=== PATIENT | male | born 1990 | race Caucasian/White ===

== ENCOUNTER 2017-10-18 17:07 | Emergency (ER) | payer SELFPAY ==
[2017-10-18 17:17] VITALS: BP 119/85
[2017-10-18] MEDS ORDERED: HYDROcod/ACET 5/325 Prepack 6 PO STA (17:33)
--- NOTE | 2017-10-18 17:36 | ED Physician Documentation ---
PD HPI HEENT - Stated complaint Stated Complaint: FACIAL/MOUTH PX - Chief complaint Chief Complaint: Heent - History obtained from History obtained from: Patient, Family - History of Present Illness Timing - onset: How many days ago (3) Timing - duration: Days (3) Timing - details: Gradual onset, Still present Location: Tooth Improves: Nothing Worsens: Everything Associated symptoms: Congestion, Other (facial pain and nasal pain) Similar symptoms before: Has not had sx before Recently seen: Not recently seen - Additional information Additional information: 27-year-old male recently moved to the area has developed acute pain in his face there are 2 teeth that are bothering him significantly and pain is radiating up into his nose and in the roof of his mouth. He did have a sore in his nose which seems to have started all this. Review of Systems Constitutional: reports: Fatigue. denies: Fever Eyes: denies: Decreased vision Ears: denies: Ear pain Nose: reports: Congestion Throat: reports: Dental pain / toothache Respiratory: denies: Cough GI: denies: Vomiting PD PAST MEDICAL HISTORY - Present Medications Home Medications: Ambulatory Orders Medication Instructions Recorded Confirmed Clindamycin HCl [Clindamycin 300MG 300 mg PO QID #28 capsule 10/18/17 CAP] HYDROcod/ACETAM 5/325 [[place] 5/325] 1 - 2 ea PO Q6H PRN #15 tablet 10/18/17 - Allergies Allergies/Adverse Reactions: Allergies Allergy/AdvReac Type Severity Reaction Status Date / Time amoxicillin Allergy Anaphylaxis Verified 10/18/17 17:17 Penicillins Allergy Anaphylaxis Verified 10/18/17 17:17 PD ED PE NORMAL - Vitals Vital signs reviewed: Yes (Hypertensive mild) - General General: Alert and oriented X 3, Well developed/nourished - HEENT HEENT: Atraumatic, PERRL, EOMI, Ears normal, Moist mucous membranes, Pharynx benign, Other (There are 3 teeth that are sensitive to touch. 6. 7 and 8 are all tender with 7 being the most tender. There are no areas of fluctuance or swelling in the gingiva or buccal mucosa.) - Neck Neck: Supple, no meningeal sign, No bony TTP - Cardiac Cardiac: RRR - Respiratory Respiratory: No respiratory distress, Clear bilaterally - Back Back: No CVA TTP, No spinal TTP - Derm Derm: Normal color, No rash - Extremities Extremities: No deformity, No edema - Neuro Neuro: Alert and oriented X 3, No motor deficit, No sensory deficit, Normal speech Eye Opening: Spontaneous Motor: Obeys Commands Verbal: Oriented GCS Score: 15 - Psych Psych: Normal mood, Normal affect PD ED PE EXPANDED - HEENT HEENT Visual: 1 - tenderness Results - Vitals Vitals: Vital Signs - 24 hr 10/18/17 17:15 Temperature 36.1 C L Heart Rate 64 Respiratory 20 Rate Blood Pressure 119/85 H O2 Saturation 99 Oxygen O2 Source Room air PD MEDICAL DECISION MAKING - ED course Complexity details: considered differential, d/w patient, d/w family ED course: 27 y/o male with acute pain in the face and under the nose has 3 teeth that are sensitive and his nose has only mild inflammation. He is given a script for bactroban and we will start him on some clindamycin now. Departure - Departure Disposition: Home, Self Care Clinical Impression: Dental abscess Condition: Stable Instructions: ED Abscess Dental Follow-Up: [facility] [Provider Group] Prescriptions: Clindamycin HCl [Clindamycin 300MG CAP] 300 mg PO QID #28 capsule HYDROcod/ACETAM 5/325 [[place] 5/325] 1 - 2 ea PO Q6H PRN #15 tablet PRN Reason: Pain
[2017-10-18] MEDS ORDERED: CLINDAMYCIN 150 MG CAPSULE PO STA (17:39)
== END 2017-10-18 17:57 | disposition home or self-care (01) ==
LOC: ED 17:07
DX: K04.7 Periapical abscess without sinus (principal)
CPT/HCPCS: 99281; 99283; A9270

== ENCOUNTER 2018-04-07 11:38 | Outpatient (CLI) | payer OTHER ==
--- NOTE | 2018-04-07 15:11 | XRAY Report ---
Procedure Date: 04/07/2018 Accession Number: [id number] / [id number] Procedure: XRN - Lumbar Spine 2 View CPT Code: FULL RESULT: EXAM: Lumbar Spine 2 View DATE: 04/07/2018 11:52 AM CLINICAL HISTORY: BACK PAIN COMPARISON: None. TECHNIQUE: 3 views. FINDINGS: Alignment: Normal. No spondylolisthesis or scoliosis. Bones: Five [id number] lumbar vertebral bodies are present. No fractures or bone lesions. Disks: Normal. Disk heights are maintained. Facets: No degenerative changes. Sacroiliac Joints: Unremarkable. Soft Tissues: Normal. The visualized bowel gas pattern is normal. IMPRESSION: Normal lumbar spine radiography. [facility]IA
== END 2018-04-07 11:39 | disposition home or self-care (01) ==
LOC: DI.N 11:38
PROVIDERS: ATTEND Nurse Practitioner
DX: M54.40 Lumbago with sciatica, unspecified side (principal)
CPT/HCPCS: 72100

== ENCOUNTER 2018-06-15 10:56 | Outpatient (CLI) | payer OTHER | END 2018-06-15 10:57 | disposition home or self-care (01) | LOC: SC 10:56 | PROVIDERS: ATTEND Internal Medicine Pulmonary Disease | DX: G47.30 Sleep apnea, unspecified (principal); G47.10 Hypersomnia, unspecified; R06.83 Snoring; G47.8 Other sleep disorders | CPT/HCPCS: 99203; 99212 ==

== ENCOUNTER 2018-08-01 19:13 | Outpatient (CLI) | payer OTHER | END 2018-08-01 19:14 | disposition home or self-care (01) | LOC: SC 19:13 | PROVIDERS: ATTEND Internal Medicine Pulmonary Disease | DX: G47.33 Obstructive sleep apnea (adult) (pediatric) (principal) | CPT/HCPCS: 95810 ==

== ENCOUNTER 2018-08-11 15:58 | Outpatient (CLI) | payer OTHER | END 2018-08-11 15:59 | disposition home or self-care (01) | LOC: SC 15:58 | PROVIDERS: ATTEND Nurse Practitioner Family | DX: G47.33 Obstructive sleep apnea (adult) (pediatric) (principal) | CPT/HCPCS: 99212; 99214 ==

== ENCOUNTER 2018-10-26 15:25 | Outpatient (CLI) | payer OTHER | END 2018-10-26 15:26 | disposition home or self-care (01) | LOC: SC 15:25 | PROVIDERS: ATTEND Nurse Practitioner Family | DX: G47.33 Obstructive sleep apnea (adult) (pediatric) (principal) | CPT/HCPCS: 99212; 99215 ==

== ENCOUNTER 2019-01-26 15:22 | Outpatient (CLI) | payer OTHER | END 2019-01-26 15:23 | disposition home or self-care (01) | LOC: SC 15:22 | PROVIDERS: ATTEND Nurse Practitioner Family | DX: G47.33 Obstructive sleep apnea (adult) (pediatric) (principal) | CPT/HCPCS: 99212; 99214 ==

== ENCOUNTER 2019-01-28 08:00 | Outpatient (CLI) | payer OTHER ==
[2019-01-28 19:21] LABS: BASOPHILS % (AUTO) 0.6 %; EOSINOPHILS % (AUTO) 1.2 %; LYMPHOCYTES # (AUTO) 1.3 10^3/uL (1.5-3.5); LYMPHOCYTES % (AUTO) 31.2 %; MEAN CORPUSCULAR HGB CONC 33.7 g/dL (32.0-36.0); MEAN PLATELET VOLUME 8.4 fL (7.4-11.4); MONOCYTES # (AUTO) 0.2 10^3/uL (0.0-1.0); MONOCYTES % (AUTO) 4.5 %; NEUTROPHILS # (AUTO) 2.6 10^3/uL (1.5-6.6); NEUTROPHILS % (AUTO) 62.5 %; PLT - PLATELET COUNT 280 10^3/uL (130-450); RED BLOOD COUNT 4.84 10^6/uL (4.70-6.10); RED CELL DISTRIBUTION WIDTH 12.7 % (12.0-15.0); WHITE BLOOD COUNT 4.2 x10^3/uL (4.8-10.8)
[2019-01-28 19:34] LABS: ALBUMIN 4.4 g/dL (3.2-5.5); ALBUMIN/GLOBULIN RATIO 1.4 (1.0-2.2); ALKALINE PHOSPHATASE 127 IU/L (42-121); ALT ALANINE AMINOTRANSFERASE 107 IU/L (10-60); AST ASPARTATE AMINOTRANSFERASE 54 IU/L (10-42); BILIRUBIN,TOTAL 1.2 mg/dL (0.2-1.0); BUN - BLOOD UREA NITROGEN 12 mg/dL (6-20); CALCIUM 9.3 mg/dL (8.5-10.3); CARBON DIOXIDE - CO2 28 mmol/L (21-32); CHLORIDE 101 mmol/L (101-111); CHOL/HDL RATIO 3.4 (<5.0); CHOLESTEROL 178 mg/dL; CREATININE 0.8 mg/dL (0.6-1.2); GFR - MDRD 114 (>89); GLUCOSE 84 mg/dL (70-100); HDL CHOLESTEROL 52 mg/dL; LDL CHOLESTEROL,CALCULATED 110 mg/dL; LDL/HDL RATIO 2.1 (<3.6); SODIUM 137 mmol/L (135-145); TOTAL PROTEIN 7.5 g/dL (6.7-8.2); VLDL CHOLESTEROL 16 mg/dL
[2019-01-28 19:48] LABS: THYROID STIMULATING HORMONE 1.2 uIU/mL (0.34-5.60)
[2019-01-28 19:59] LABS: FOLATE 10.64 ng/mL (5.90 - >24.8)
== END 2019-01-28 23:59 | disposition home or self-care (01) ==
LOC: LAB.N 08:00
PROVIDERS: ATTEND Nurse Practitioner
DX: R53.83 Other fatigue (principal); E55.9 Vitamin D deficiency, unspecified; Z13.9 Encounter for screening, unspecified
CPT/HCPCS: 36415; 80053; 80061; 82306; 82607; 82746; 83721; 84403; 84443; 85025

== ENCOUNTER 2019-05-19 11:06 | Outpatient (CLI) | payer OTHER ==
[2019-05-19 12:27] VITALS: BP 108/60
--- NOTE | 2019-05-19 12:27 | SLEEP CARE CONSULTATION ---
Information from patient questionnaire entered by Shea Soriano. I have reviewed and concur with the information entered by Shea Soriano. This document represents the service I personally performed and the decisions made by me, Pam Epstein, RN, MSN, BATCH TRUCKER. 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 He had called [facility] in regard to battery option but no return call. Subjective Missed days of use due to: reports: other (falling asleep on couch after return from work. ) Patient concerns: reports: air blowing in eyes (stopped after tightened mask ), epistaxis (recent last week one day - none since turned off the fan in room. ). denies: aerophagia, mask discomfort, mask leak noise, condensation in mask/hose, nasal congestion, dry mouth, nose, throat Observed to snore while using device: No On therapy, patient: reports: sleeping better (and through the night), awakening more refreshed, being more awake and alert during the day, more rested overall. denies: drowsiness while driving Initial [place] Sleepiness Scale score: 7 Current [place] Sleepiness Scale score: 13 Allergies and Home Medications Known drug allergies: Yes (amoxicillin, penicillin) Home medication list reviewed: Yes Allergy and home medication list: Medication List Medication Name (generic/name brand) Strength & Dosage Tylenol PRN Ibuprofen PRN Review of Systems Review of systems same as previous: Yes (denies any changes) Physical Exam Blood Pressure: 108/60 Cuff size: long Heart Rate: 62 O2 Saturation: 98 Height: 5 ft 10.5 in Weight (kg): 86.818 kg Body Mass Index: 27.1 BMI Classification: Overweight Nasal exam: positive: erythema, other (some dryness noted left lower septum) Impression and Plan 1. Obstructive Sleep Apnea-Hypopnea Syndrome, moderate, with fair treatment compliance and good apnea control. On CPAP therapy, there is improved sleep quality and continues to feel more rested overall. 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 It is to be used without the humidity as draws too much power. Humidity can be turned off or the reservoir removed as shown on sample device. Thus since his apnea is more severe in supine position, he tries to sleep on his side in berth when unable to use CPAP. To prevent falling asleep in chair he is advised to set a chair / couch alarm on his phone or a separate alarm for his bedtime. To reduce sleepiness symptoms, he is advised to strive for a minimum of 7 hours and up to 8 hours. I explained that most people require 7-9 hours of sleep for optimal mental and physical function. 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 Patient's apnea severity and rationale for treatment to reduce apnea, improve sleep quality and reduce cardiovascular and cerebrovascular events was reviewed. I also reviewed the benefit of consistent device use of CPAP for anxiety. Continue auto CPAP pressure at 5-10 cm H2O. Notify me if snoring with the mask or feeling that the pressure is too much or too little. Follow up with PCP for CPAP battery prescription. Obtain more sleep. Couch alarm. 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 I spent 100% of this 35 minute visit face to face with the patient with greater than 50% of this was spent time counseling the patient and coordination of care.
== END 2019-05-19 11:07 | disposition home or self-care (01) ==
LOC: SC 11:06
PROVIDERS: ATTEND Nurse Practitioner Family
DX: G47.33 Obstructive sleep apnea (adult) (pediatric) (principal)
CPT/HCPCS: 99212; 99214

== ENCOUNTER 2019-10-24 14:47 | Outpatient (CLI) | payer OTHER ==
--- NOTE | 2019-10-24 15:32 | SLEEP CARE CONSULTATION ---
Information from patient questionnaire entered by Rosio Liu. I have reviewed and concur with the information entered by Rosio Liu. This document represents the service I personally performed and the decisions made by me, Pam Epstein, RN, MSN, REPRODUCTIVE HEALTHCARE ASSISTANT. History of Present Illness Previous diagnosis: Moderate, Obstructive Sleep Apnea-Hypopnea Syndrome AHI: 18.5 Reason for follow up: other (5 MONTH) Equipment type: CPAP Equipment obtained from: [facility] (would like to switch to new provider as [place] Mask style: Nasal Mask brand: Respironics Backup mask available: Yes Last cushion change: 1-2 months ago Prior sleep studies: Yes HPI additional information: He contacted his PCP re CPAP battery and declined. He is still in [place]. 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 The bedtime alarm helped reduce his missing CPAP. He is striving for more sleep but not consistent due to job and family needs and school. He is more rested but has intermittent fatigue. If needs to go aboard ship, his sleep quarters are now able to use CPAP. 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 ) Initial [place] Sleepiness Scale score: 7 Current [place] Sleepiness Scale score: 9 Allergies and Home Medications Known drug allergies: Yes (see list ) Home medication list reviewed: No (none ) Physical Exam Blood Pressure: 112/70 Cuff size: long Heart Rate: 67 O2 Saturation: 97 Height: 5 ft 10.5 in Weight: 204 lb 12.8 oz Body Mass Index: 29.0 BMI Classification: Overweight Impression and Plan 1. Obstructive Sleep Apnea-Hypopnea Syndrome, moderate, with fair treatment compliance and good apnea control. On CPAP therapy, the patient has better sleep quality and is more rested overall with intermittent fatigue. He compliance fell from time on boat and short sleep due to schoolwork or toddler. Thus we talked about effects of insufficient sleep. Most people require 7-9 hours for optimal mental and physical function. Less than 5-6 houts consistently can increase health risks. He is advised to strive for 7-8 hours and a minimum of 6 hours. Once he achieves more sleep, his intermittent fatigue should resolve. He was also reminded how more sleep will assist him to complete school work more efficiently. In regard to a [employer] letter for [facility] coverage of CPAP. I am unfamiliar and will check with my chief medical physicist. For patient supply concerns. Patient was notified that another DME can be used. I will have my mailroom coordinator inform of DME options. A [facility] prescription will then be made. Patient advised to contact this office if further supply problems.Patient to clarify what this is and who needs to sign. Patient's apnea severity and rationale for treatment to reduce apnea, improve sleep quality and reduce cardiovascular and cerebrovascular events was reviewed. I also reviewed the benefit of consistent device use of CPAP for anxiety. Since his apnea is more severe supine, he is advised to avoid supine sleep with pillow positioning if unable to use CPAP. * Continue CPAP pressure at 5 -10 cmH2O * Transfer to new DME * strive for more sleep. * Notify me if snoring with mask or feeling that the pressure is too much or too little * Attempt to lose weight * Call this office if any problems using CPAP * Return for follow up in 2 months , or sooner if concerns arise Time Spent with Patient (minutes): 27 I spent 100% of this visit face to face with the patient with greater than 50% of this was spent time counseling the patient and coordination of care.
[2019-10-25 14:05] VITALS: BP 112/70
== END 2019-10-24 14:48 | disposition home or self-care (01) ==
LOC: SC 14:47
PROVIDERS: ATTEND Nurse Practitioner Family
DX: G47.33 Obstructive sleep apnea (adult) (pediatric) (principal)
CPT/HCPCS: 99212; 99214

== ENCOUNTER 2020-03-07 15:12 | Outpatient (CLI) | payer OTHER ==
--- NOTE | 2020-03-07 14:00 | SLEEP CARE CONSULTATION ---
Information from patient questionnaire entered by Shea Soriano. I have reviewed and concur with the information entered by Shea Soriano. This document represents the service I personally performed and the decisions made by me, Pam Epstein, RN, MSN, UNDERGROUND MINING SECTION FOREMAN. History of Present Illness Service Date and Time: 03/07/2020 1512 Previous diagnosis: Moderate, Obstructive Sleep Apnea-Hypopnea Syndrome AHI: 18.5 (in 2018) Reason for follow up: other (4 month) Equipment type: CPAP Equipment obtained from: [facility] (delay in getting supplies after transfer due to Covid precautions.) Mask style: Nasal Backup mask available: No Last cushion change: waiting for new mask fitted. Prior sleep studies: Yes Year and Where: 2017 - [facility] Type of Sleep Study: Polysomnography CPAP Compliance Data - Data Reviewed with Patient Average duration of nightly device use: 5.5 Compliance rate %: 37.8 (90 days) Current pressure setting (cmH2O): 5-10 Humidity settin Heated hose settin Average residual AHI: 3.0 Average large leak: 6 min 13 sec Subjective Missed days of use due to: reports: other (pressure did not seem enough - called [facility] -no response for a month with multiple calls. / filter had a hole once replaced the pressure was adequate / new hose also. ) Patient concerns: reports: aerophagia (waking to burp a couple times when first awakened / denies abdominal distention), air blowing in eyes (rare - adjust mask ), mask leak noise, nasal congestion (chronic - affecting his ablilty to breathe through nose). denies: mask discomfort, condensation in mask/hose, dry mouth, nose, throat, epistaxis Observed to snore while using device: No Current pressure setting perceived as: comfortable On therapy, patient: reports: sleeping better, awakening more refreshed, being more awake and alert during the day, more rested overall. denies: drowsiness while driving Initial [place] Sleepiness Scale score: 7 (in 2018) Allergies and Home Medications Home medication list reviewed: No (no changes) Review of Systems Review of systems same as previous: Yes Physical Exam Height: 5 ft 10.5 in Weight: 210 lb Body Mass Index: 29.7 BMI Classification: Overweight Impression and Plan 1. Obstructive Sleep Apnea-Hypopnea Syndrome, moderate, with fair treatment compliance and good apnea control. On CPAP therapy, the patient has better sleep quality and is more rested overall. If continued problems with getting supplies he is to contact this office to see if we can assist him. I will also add to his prescription to please send new mask that was fitted at his transfer set up. To reduce symptoms of aerophagia, the CPAP pressure will be reduced to 5-8 cmH2O. Patient advised to contact me if this does not reduce symptoms or if pressure change uncomfortable. Nasal congestion could be contributing to his aerophagia and can be reduced with increasing the CPAP humidity. The heated hose can be adjusted higher if condensation with higher humidity setting. Saline nasal spray sample can also be used prior to CPAP to clear nasal secretions and wash off any nasal allergens to facilitate nasal breathing. In addition, a steamy shower before bed will often assist nasal drainage. Currently patients BMI is 29.7 obesity class Overweight. I counseled patient how Obesity increases the risk of apnea, CPAP pressure requirements and overall health risks especially cardiovascular and diabetes. Thus patient is advised to lose weight. Weight loss can be done with reducing portion size as well as increasing activity which he and spouse are now doing. A diet consultation can be helpful in achieving optimal weight loss goals. The BMI chart was reviewed. Patient encouraged to discuss their weight loss goals with their PCP and consider a referral to a x ray developer. The patient's CPAP pressure range should accommodate some weight loss. Symptoms to report for additional pressure adjustment discussed. Patient states that there is a form to complete for [facility] to report on symptoms present before current diagnosis and treatment. I advised him to contact this office with form so I can see if can complete for him. Patient's apnea severity and rationale for treatment to reduce apnea, improve sleep quality and reduce cardiovascular and cerebrovascular events was reviewed. * * Changeauto CPAP pressure to 5- 8 cmH2O * Implement methods to reduce nasal congestion. * Notify me if snoring with mask or feeling that the pressure is too much or too little * Attempt to lose weight * Contact this office with [facility] form as discussed. * Call this office if any problems using CPAP * Return for follow up in 2 months , or sooner if concerns arise Visit Type: Telehealth Video (to reduce risk of Covid 19 exposure) Video Type: [email or web address] Patient Location: car Location of Provider: Home Patient agrees and consents to this telehealth visit type: Yes Patient agrees to have their insurance billed: Yes Time Spent with Patient (minutes): 20 Provider Statement: I spent 100% of the Telehealth Video Call with the patient with greater than 50% spent counseling the patient and coordination of care.
== END 2020-03-07 15:13 | disposition home or self-care (01) ==
LOC: SC 15:12
PROVIDERS: ATTEND Nurse Practitioner Family
DX: G47.33 Obstructive sleep apnea (adult) (pediatric) (principal); E66.3 Overweight; Z68.29 Body mass index [BMI] 29.0-29.9, adult

== ENCOUNTER 2020-04-03 08:00 | Outpatient (CLI) | payer OTHER ==
[2020-04-03 18:57] LABS: HB2 TOTAL 15.2 g/dL; HEMOGLOBIN A1C 0.52 g/dL; HEMOGLOBIN A1C % 5.3 % (4.6-6.2)
[2020-04-03 18:58] LABS: KETONES, SERUM (ACETEST) NEGATIVE (NEGATIVE)
[2020-04-03 19:09] LABS: ALBUMIN 4.2 g/dL (3.2-5.5); ALBUMIN/GLOBULIN RATIO 1.4 (1.0-2.2); ALKALINE PHOSPHATASE 142 IU/L (42-121); ALT ALANINE AMINOTRANSFERASE 131 IU/L (10-60); AST ASPARTATE AMINOTRANSFERASE 127 IU/L (10-42); BILIRUBIN,TOTAL 0.7 mg/dL (0.2-1.0); BUN - BLOOD UREA NITROGEN 11 mg/dL (6-20); CALCIUM 9.2 mg/dL (8.5-10.3); CARBON DIOXIDE - CO2 25 mmol/L (21-32); CHLORIDE 106 mmol/L (101-111); CREATININE 0.9 mg/dL (0.6-1.2); GLUCOSE 68 mg/dL (70-100); SODIUM 139 mmol/L (135-145); TOTAL PROTEIN 7.2 g/dL (6.7-8.2)
== END 2020-04-03 23:59 | disposition home or self-care (01) ==
LOC: LAB.WCP 08:00
PROVIDERS: ATTEND Family Medicine
DX: Z01.83 Encounter for blood typing (principal); E16.2 Hypoglycemia, unspecified
CPT/HCPCS: 36415; 80053; 81599; 82009; 83036; 83525; 84443; 84681; 86900; 86901

== ENCOUNTER 2020-07-31 13:49 | Outpatient (CLI) | payer OTHER ==
[2020-07-31 18:40] LABS: ALBUMIN 4.5 g/dL (3.2-5.5); BILIRUBIN,DIRECT 0.2 mg/dL (0.1-0.5); BILIRUBIN,TOTAL 1.4 mg/dL (0.2-1.0); TOTAL PROTEIN 7.5 g/dL (6.7-8.2)
[2020-08-01 12:45] LABS: HEPATITIS C ANTIBODY NON-REACTIVE (NON-REACTIVE)
== END 2020-07-31 23:59 | disposition home or self-care (01) ==
LOC: LAB.WCP 13:49
PROVIDERS: ATTEND Nurse Practitioner Family
DX: R94.5 Abnormal results of liver function studies (principal)
CPT/HCPCS: 36415; 80076; 86803

== ENCOUNTER 2020-08-14 12:25 | Outpatient (CLI) | payer OTHER ==
--- NOTE | 2020-08-14 13:55 | Ultrasound Report ---
PROCEDURE: Abdomen Limited INDICATIONS: ABN LIVER FUNCTION TESTS TECHNIQUE: Real-time focused scanning was performed of the abdomen, with image documentation. COMPARISON: None. FINDINGS: Normal size of the liver. Possible mild hepatic steatosis. No hepatic mass. Normal caliber main darby l vein. Normal caliber intrahepatic and extra hepatic biliary ducts. Normally distended gallbladder without wall thickening, gallstone, or sludge. Normal size and appearance of both kidneys. Pancreas is obscured and not evaluated. Normal appearance of the aorta and IVC. IMPRESSION: Possible mild hepatic steatosis. Nonvisualization of the pancreas. Otherwise normal study. Reviewed by: Armando Langston MD on 08/14/2020 1:54 PM PST Approved by: Armando Langston MD on 08/14/2020 1:54 PM PST Station ID: [id number]
== END 2020-08-14 12:26 | disposition home or self-care (01) ==
LOC: DI 12:25
PROVIDERS: ATTEND Nurse Practitioner Family
DX: R94.5 Abnormal results of liver function studies (principal)
CPT/HCPCS: 76705

== ENCOUNTER 2021-05-16 08:00 | Outpatient (CLI) | payer OTHER ==
[2021-05-16 17:50] LABS: EOSINOPHILS # (AUTO) 0.1 10^3/uL (0.0-0.7); EOSINOPHILS % (AUTO) 1.6 %; HCT - HEMATOCRIT 44.8 % (42.0-52.0); HGB - HEMOGLOBIN 14.5 g/dL (14.0-18.0); LYMPHOCYTES # (AUTO) 1.2 10^3/uL (1.5-3.5); LYMPHOCYTES % (AUTO) 38.2 %; MEAN CORPUSCULAR HEMOGLOBIN 28.9 pg (27.0-31.0); MEAN CORPUSCULAR HGB CONC 32.4 g/dL (32.0-36.0); MEAN CORPUSCULAR VOLUME 89.4 fL (80.0-94.0); MEAN PLATELET VOLUME 10.1 fL (7.4-11.4); MONOCYTES # (AUTO) 0.2 10^3/uL (0.0-1.0); MONOCYTES % (AUTO) 6.7 %; NEUTROPHILS # (AUTO) 1.7 10^3/uL (1.5-6.6); NEUTROPHILS % (AUTO) 52.5 %; PLT - PLATELET COUNT 292 10^3/uL (130-450); RED BLOOD COUNT 5.01 10^6/uL (4.70-6.10); RED CELL DISTRIBUTION WIDTH 12.1 % (12.0-15.0); WHITE BLOOD COUNT 3.1 x10^3/uL (4.8-10.8)
[2021-05-16 18:17] LABS: ALBUMIN 4.5 g/dL (3.2-5.5); ALBUMIN/GLOBULIN RATIO 1.4 (1.0-2.2); BILIRUBIN,TOTAL 1.2 mg/dL (0.2-1.0); CALCIUM 9.3 mg/dL (8.5-10.3); POTASSIUM 4.6 mmol/L (3.5-5.0); TOTAL PROTEIN 7.8 g/dL (6.7-8.2)
[2021-05-16 18:24] LABS: THYROID STIMULATING HORMONE 1.17 uIU/mL (0.34-5.60)
== END 2021-05-16 23:59 | disposition home or self-care (01) ==
LOC: LAB.WCP 08:00
PROVIDERS: ATTEND Family Medicine
DX: F43.10 Post-traumatic stress disorder, unspecified (principal); R06.83 Snoring; G47.39 Other sleep apnea; R94.5 Abnormal results of liver function studies; R53.83 Other fatigue
CPT/HCPCS: 36415; 80053; 84443; 85025

== ENCOUNTER 2022-02-03 15:18 | Outpatient (CLI) | payer OTHER ==
[2022-02-03 21:12] LABS: BASOPHILS % (AUTO) 0.8 %; EOSINOPHILS # (AUTO) 0.1 10^3/uL (0.0-0.7); EOSINOPHILS % (AUTO) 1.5 %; HCT - HEMATOCRIT 42.1 % (42.0-52.0); LYMPHOCYTES # (AUTO) 1.4 10^3/uL (1.5-3.5); LYMPHOCYTES % (AUTO) 29.4 %; MEAN CORPUSCULAR HEMOGLOBIN 29.9 pg (27.0-31.0); MEAN CORPUSCULAR HGB CONC 33.3 g/dL (32.0-36.0); MEAN CORPUSCULAR VOLUME 89.8 fL (80.0-94.0); MEAN PLATELET VOLUME 9.8 fL (7.4-11.4); MONOCYTES # (AUTO) 0.2 10^3/uL (0.0-1.0); MONOCYTES % (AUTO) 4.8 %; NEUTROPHILS % (AUTO) 63.3 %; PLT - PLATELET COUNT 338 10^3/uL (130-450); RED BLOOD COUNT 4.69 10^6/uL (4.70-6.10); RED CELL DISTRIBUTION WIDTH 12.4 % (12.0-15.0); WHITE BLOOD COUNT 4.8 x10^3/uL (4.8-10.8)
[2022-02-03 21:28] LABS: ALBUMIN 4.4 g/dL (3.2-5.5); BILIRUBIN,DIRECT 0.1 mg/dL (0.1-0.5); BILIRUBIN,TOTAL 0.9 mg/dL (0.2-1.0); TOTAL PROTEIN 7.6 g/dL (6.7-8.2)
[2022-02-05 12:01] LABS: HEPATITIS B SURFACE ANTIGEN NON-REACTIVE (NON-REACTIVE)
== END 2022-02-03 15:19 | disposition home or self-care (01) ==
LOC: LAB.N 15:18
PROVIDERS: ATTEND Family Medicine
DX: K58.9 Irritable bowel syndrome, unspecified (principal); K76.0 Fatty (change of) liver, not elsewhere classified; R94.5 Abnormal results of liver function studies
CPT/HCPCS: 36415; 80076; 82977; 85025; 86317; 87340